=== PATIENT | female | born 1935 | race Caucasian/White ===

== ENCOUNTER 2017-08-01 17:04 | Emergency (ER) | payer MEDICARE, MEDICAID ==
[~2017-08-01] VITALS: Ht 157.5 cm; Wt 63.5 kg
[2017-08-01 17:04] VITALS: BP 126/71
== END 2017-08-01 18:19 | disposition home or self-care (01) ==
LOC: ER 17:09
DX: H10.029 Other mucopurulent conjunctivitis, unspecified eye (principal); I11.0 Hypertensive heart disease with heart failure; I50.9 Heart failure, unspecified; Z88.0 Allergy status to penicillin
CPT/HCPCS: 99281; A4606; Z7502; Z7610

== ENCOUNTER 2019-08-29 18:08 | Inpatient (IN) | payer MEDICARE, MEDICAID ==
[~2019-08-29] VITALS: Ht 157.5 cm; Wt 65.3 kg
--- NOTE | 2019-08-29 18:34 | NUR ---
Sent by PCP, for admission; CHF exacerbation; requiring intravenous. Per primary care physician-patient complained of SOB x 7 days. DENIES PAIN, NO ACUTE DISTRESS NOTED. AMBULATORY, VSS. LIMITED HISTORY, PT SPEAKS FARSI. ON MONITOR AND READY FOR EVAL.
--- NOTE | 2019-08-29 19:00 | NUR ---
IV ACCESS OBTAINED. PT DARRICK WELL.
[2019-08-29 19:09] LABS: BASOPHILS # (AUTO) 0.1 /CMM (0.0-0.2); BASOPHILS % (AUTO) 1.3 % (0.0-2.0); EOSINOPHILS % (AUTO) 3.1 % (0.0-6.0); HEMATOCRIT 40 % (33-45); HEMOGLOBIN 12.8 g/dL (11.5-14.8); LYMPHOCYTES # (AUTO) 1.4 /CMM (0.8-4.8); LYMPHOCYTES % (AUTO) 25.4 % (20.0-44.0); MEAN CORPUSCULAR HGB CONC 32 g/dl (31.0-36.0); MEAN CORPUSCULAR VOLUME 88 fL (82-100); MONOCYTES # (AUTO) 0.7 /CMM (0.1-1.30); MONOCYTES % (AUTO) 13.1 % (2.0-12.0); NEUTROPHILS # (AUTO) 3.1 /CMM (1.8-8.9); NEUTROPHILS % (AUTO) 57.1 % (43.0-81.0); PLATELET COUNT (AUTO) 223 /CMM (150-450); RED BLOOD CELL COUNT(AUTO) 4.55 MIL/uL (4.0-5.2); WHITE BLOOD COUNT (AUTO) 5.4 K/uL (4.3-11.0)
[2019-08-29 19:24] LABS: CALCIUM, SERUM 9.7 mg/dL (8.5-10.1); CARBON DIOXIDE 29 mmol/L (21-32); CHLORIDE 106 mmol/L (98-107); CREATININE 1.1 mg/dL (0.6-1.3); GLUCOSE 100 mg/dL (74-106); POTASSIUM 3.9 mmol/L (3.5-5.1); SODIUM SERUM 144 mmol/L (136-145); UREA NITROGEN, BLOOD 25 mg/dL (7-18)
[2019-08-29 19:37] LABS: ALANINE AMINOTRANSFERASE 15 U/L (12-78); ALBUMIN 3.4 g/dL (3.4-5.0); ALKALINE PHOSPHATASE 105 U/L (46-116); ASPARTATE AMINOTRANSFERASE 16 U/L (15-37); B-TYPE NATRIURETIC PEPTIDE 678 PG/ML (0-125); BILIRUBIN,DIRECT 0.1 mg/dL (0.0-0.2); BILIRUBIN,TOTAL 0.4 mg/dL (0.2-1.0); TOTAL PROTEIN, SERUM 7.1 g/dL (6.4-8.2)
--- NOTE | 2019-08-29 19:55 | NUR ---
CALLED SUP FOR TELE BED
--- NOTE | 2019-08-29 20:16 | NUR ---
PT RESTING COMFORTABLY IN BED. VSS. WILL CONT TO MONITOR.
--- NOTE | 2019-08-29 20:24 | NUR ---
ER DOC ON PHONE WITH HOSPITALIST
[2019-08-29] MEDS ORDERED: Z GUARD REMEDY 2 OZ OINT TP PRN (21:00)
[2019-08-29] MEDS ORDERED: ACETAMINOPHEN 325 MG TABLET PO PRN (21:00)
[2019-08-29] MEDS ORDERED: HYDROCODONE/APAP 5/325MG 1 EACH TABLET PO PRN (21:00)
[2019-08-29] MEDS ORDERED: MAG HYDROX/AL HYDROX/SIMETH 30 ML UDC PO PRN (21:00)
[2019-08-29] MEDS ORDERED: ZOLPIDEM TARTRATE 5 MG TABLET PO PRN (21:00)
[2019-08-29] MEDS ORDERED: MAGNESIUM HYDROXIDE 30 ML UDC PO PRN (21:00)
[2019-08-29] MEDS ORDERED: ONDANSETRON HCL/PF 4 MG/2 ML VIAL IVP PRN (21:00)
--- NOTE | 2019-08-29 21:47 | NUR ---
REPORT GIVEN TO JOHNATHAN BURKS FOR [id number]. [facility]ON[facility] ACCEPTING
[2019-08-29 22:40] VITALS: BP 123/60
--- NOTE | 2019-08-29 22:40 | NUR ---
[facility]
--- NOTE | 2019-08-29 22:53 | NUR ---
dr. shine at the bedside to see the patient. Addendum: 08/29/19 at 2257 by VITALIY STEWART RN orders clarified. patient to be med surge. informed no medications were given in er. new orders recieved.
[2019-08-29] MEDS ORDERED: FUROSEMIDE 40 MG/4 ML VIAL IV ONE (23:18)
[2019-08-29] MEDS ORDERED: FURO40TA5 PO (23:28)
[2019-08-29] MEDS ORDERED: AMLO5TAB9 PO (23:28)
[2019-08-29] MEDS ORDERED: ATOR10TA PO (23:28)
[2019-08-29] MEDS ORDERED: POTA10CA43 PO (23:28)
[2019-08-29] MEDS ORDERED: RIVA10TA PO (23:28)
--- NOTE | 2019-08-29 23:49 | NUR ---
jyothi hernandez called and he helped complete admission assessment.
--- NOTE | 2019-08-29 23:50 | NUR ---
patient admitted from er under dr. shine for chf exacerbation patidavid andress been having increasing sob for last 7 daysys . pt is amublatory speaks frasi is alert and oriented x3. as med surge patient. patient in no apparent distress. new orders recieved from dr. shine. medication from purse confiscated placed with chart family informed to be collected tomorrow when david visits her son.
--- NOTE | 2019-08-30 06:44 | NUR ---
MED SURGE CLOSING NOTE. PATIENT RESTING IN BED WITH EYES CLOSED IN NO APPARENT DISTRESS. ON 2LNC BREATHING IS EVEN AND UNLABORED. BED DOWN LOCKED SRX2. CALL LIGHT WITHIN REACH.
--- NOTE | 2019-08-30 07:17 | NUR ---
MS RN OPENING NOTES RECEIVED PATIENT AWAKE IN BED IN NO ACUTE SIGNS OF DISTRESS. A/O X4. FARSI SPEAKING, DENIES PAIN OR ANY DISCOMFORTS AT THIS TIME. ON SUPPLEMENTAL 02 VIA N/C @ 2LPM, TOLERATING WELL, BREATHING EVEN AND UNLABORED. IV SL ON LEFT WRIST G#20 INTACT, PATENT AND FLUSHES WELL. BED IN LOW LOCKED POSITION WITH SR UP X2. CALL LIGHT WITHIN REACH. WILL CONTINUE TO MONITOR.
[2019-08-30 07:19] LABS: BASOPHILS # (AUTO) 0.1 /CMM (0.0-0.2); EOSINOPHILS % (AUTO) 3.7 % (0.0-6.0); HEMATOCRIT 40 % (33-45); HEMOGLOBIN 12.5 g/dL (11.5-14.8); LYMPHOCYTES # (AUTO) 1.6 /CMM (0.8-4.8); LYMPHOCYTES % (AUTO) 27.8 % (20.0-44.0); MEAN CORPUSCULAR HGB CONC 32 g/dl (31.0-36.0); MEAN CORPUSCULAR VOLUME 87 fL (82-100); MONOCYTES # (AUTO) 0.7 /CMM (0.1-1.30); MONOCYTES % (AUTO) 11.4 % (2.0-12.0); NEUTROPHILS # (AUTO) 3.2 /CMM (1.8-8.9); NEUTROPHILS % (AUTO) 56.1 % (43.0-81.0); PLATELET COUNT (AUTO) 222 /CMM (150-450); RED BLOOD CELL COUNT(AUTO) 4.52 MIL/uL (4.0-5.2); WHITE BLOOD COUNT (AUTO) 5.7 K/uL (4.3-11.0)
[2019-08-30 07:32] LABS: CALCIUM, SERUM 9.6 mg/dL (8.5-10.1); CREATININE 0.9 mg/dL (0.6-1.3); MAGNESIUM 2.2 mg/dL (1.8-2.4); PHOSPHORUS 3.7 mg/dL (2.5-4.9); POTASSIUM 3.3 mmol/L (3.5-5.1)
[2019-08-30 08:00] VITALS: BP 118/57
[2019-08-30] MEDS ORDERED: FUROSEMIDE 40 MG/4 ML VIAL IV SCH (09:00)
--- NOTE | 2019-08-30 09:10 | NUR ---
med [facility] nurse: [facility], spoke to shelton (pharmacist) and verified pt's home medications. i added losartan 100mg po daily and omeprazole 20mg po daily. per shelton (pharmacist), pt used to be on xarelto 20mg po daily, but she doesn't get her refill here. place a call to david (son) and verified that she is still taking xarelto. baron (primary nurse) notified and informed him that i updated her medications.
[2019-08-30] MEDS ORDERED: OMEP20TA5 PO (09:11)
[2019-08-30] MEDS ORDERED: LOSA100T31 PO (09:11)
--- NOTE | 2019-08-30 10:53 | NUR ---
RN NOTES PT NOTED WITH LOW LEVEL POTASSIUM 3.3 TODAY, ADMINISTERED KDUR 20 MEQ PO ORDERED. WILL CONTINUE TO MONITOR.
[2019-08-30] MEDS ORDERED: POTASSIUM CHLORIDE 20 MEQ TAB.PRT.SR PO SCH (11:00)
[2019-08-30] MEDS ORDERED: RIVAROXABAN 10 MG TABLET PO SCH ×2 (11:00→17:00)
[2019-08-30] MEDS ORDERED: RIVAROXABAN 15 MG TABLET PO SCH (11:16)
[2019-08-30 11:37] LABS: THYROID STIMULATING HORMONE 4.376 uIU/mL (0.358-3.74)
[2019-08-30] MEDS: POTASSIUM CHLORIDE 20 MEQ TAB.PRT.SR PO SCH ×3 (11:56→14:19)
[2019-08-30] MEDS: FUROSEMIDE 40 MG/4 ML VIAL IV SCH ×3 (11:56→19:12)
[2019-08-30] MEDS: PANTOPRAZOLE 40 MG TABLET.DR PO SCH (11:57)
[2019-08-30] MEDS: LOSARTAN POTASSIUM 50 MG TABLET PO SCH (11:57)
[2019-08-30] MEDS: AMLODIPINE BESYLATE 5 MG TABLET PO SCH (11:57)
[2019-08-30 16:00] VITALS: BP 106/51
--- NOTE | 2019-08-30 18:35 | NUR ---
MS RN CLOSING NOTES PATIENT ASLEEP IN BED AT THIS TIME, EASILY AROUSABLE. PT IS A/O X3-4. FARSI SPEAKING. ON SUPPLEMENTAL 02 VIA N/C @ 2LPM, TOLERATING WELL WITH NO ACUTE RESPIRATORY DISTRESS NOTED DURING SHIFT. IV SL ON LEFT WRIST G#20 INTACT, PATENT AND FLUSHES WELL. BED IN LOW LOCKED POSITION WITH SR UP X2. CALL LIGHT WITHIN REACH. ALL NEEDS AND CARE ATTENDED WELL. WILL ENDORSE TO SHANK TURNER NURSE FOR MARGARET.
--- NOTE | 2019-08-30 19:15 | NUR ---
MS RN PM OPENING NOTES BEDSIDE REPORT RECIEVED FROM MARC AND DEBORAH RN. PATIENT IN BED AT THIS TIME, EASILY AROUSABLE TO VOICE. PT IS A/O X3-4. FARSI SPEAKING ONLY WITH LIMITED BERMUDIAN ABILITY. PATIENT WEARING 02 VIA N/C @ 2LPM, BREATHING EVEN AND UNLABORED WITH NO APPARENT DISTRESS. IV SL ON LEFT WRIST G#20 INTACT, PATENT FLUSHED WITH NS. BED IN LOW LOCKED POSITION WITH SR UP X2. CALL LIGHT WITHIN REACH. PT VERBALIZEDUNDERSTANDING TO CALL FOR ASSISTANCE NEEDED. WILL CONT TO MONITOR.
[2019-08-30 19:56] VITALS: BP 112/72
[2019-08-30] MEDS ORDERED: ATORVASTATIN 10 MG TABLET PO SCH (22:00)
--- NOTE | 2019-08-31 05:09 | NUR ---
PATIENT REFUSED EKG learning disabilities teacher came to do ekg. patient refusing test at this time. speaking with patient she states its too early. wants cad technician to come back. learning disabilities teacher misael will endorse a repeat attempt of ekg to day shift learning disabilities teacher.
[2019-08-31 06:56] LABS: BASOPHILS # (AUTO) 0.1 /CMM (0.0-0.2); BASOPHILS % (AUTO) 1.2 % (0.0-2.0); HEMATOCRIT 42 % (33-45); HEMOGLOBIN 13.2 g/dL (11.5-14.8); LYMPHOCYTES # (AUTO) 1.5 /CMM (0.8-4.8); LYMPHOCYTES % (AUTO) 25.2 % (20.0-44.0); MEAN CORPUSCULAR HGB CONC 32 g/dl (31.0-36.0); MEAN CORPUSCULAR VOLUME 87 fL (82-100); MONOCYTES # (AUTO) 0.7 /CMM (0.1-1.30); MONOCYTES % (AUTO) 12.1 % (2.0-12.0); NEUTROPHILS # (AUTO) 3.4 /CMM (1.8-8.9); NEUTROPHILS % (AUTO) 57.5 % (43.0-81.0); PLATELET COUNT (AUTO) 220 /CMM (150-450); RED BLOOD CELL COUNT(AUTO) 4.76 MIL/uL (4.0-5.2); WHITE BLOOD COUNT (AUTO) 5.9 K/uL (4.3-11.0)
[2019-08-31 07:10] LABS: ALANINE AMINOTRANSFERASE 10 U/L (12-78); ALBUMIN 3.1 g/dL (3.4-5.0); ALKALINE PHOSPHATASE 101 U/L (46-116); ASPARTATE AMINOTRANSFERASE 13 U/L (15-37); BILIRUBIN,TOTAL 0.5 mg/dL (0.2-1.0); CALCIUM, SERUM 9.7 mg/dL (8.5-10.1); CARBON DIOXIDE 31 mmol/L (21-32); CHLORIDE 105 mmol/L (98-107); GLUCOSE 93 mg/dL (74-106); MAGNESIUM 2.2 mg/dL (1.8-2.4); PHOSPHORUS 4.3 mg/dL (2.5-4.9); POTASSIUM 3.7 mmol/L (3.5-5.1); SODIUM SERUM 143 mmol/L (136-145); TOTAL PROTEIN, SERUM 6.8 g/dL (6.4-8.2); UREA NITROGEN, BLOOD 23 mg/dL (7-18)
--- NOTE | 2019-08-31 07:28 | NUR ---
MS RN NOTES RECEIVED PATIENT SITTING ON THE CHAIR, A/O X3. NO SIGNS OF DISTRESS NOTED AT THIS TIME, FARSI SPEAKING ONLY WITH LIMITED SERBIAN. ON RA, TOLERATING WELL. IV ACCESS ON LEFT WRIST G#20, SL. INTACT AND PATENT. SAFETY MEASURES IN PLACE, BED IN LOW LOCKED POSITION WITH SR UP X2. CALL LIGHT WITHIN REACH. WILL CONT TO MONITOR.
[2019-08-31 08:00] VITALS: BP 112/58
[2019-08-31] MEDS: PANTOPRAZOLE 40 MG TABLET.DR PO SCH (08:53)
[2019-08-31 08:54] VITALS: BP 112/58
[2019-08-31] MEDS: AMLODIPINE BESYLATE 5 MG TABLET PO SCH (08:54)
[2019-08-31] MEDS: LOSARTAN POTASSIUM 50 MG TABLET PO SCH (08:54)
[2019-08-31] MEDS ORDERED: FUROSEMIDE 40 MG TABLET PO SCH (09:00)
[2019-08-31] MEDS ORDERED: POTASSIUM CHLORIDE 20 MEQ TAB.PRT.SR PO SCH (09:00)
--- NOTE | 2019-08-31 13:30 | NUR ---
WASHER CUTTER NOTES PATIENT DISCHARGE IN STABLE CONDITION, ABLE TO MAKE NEEDS KNOWN. A/OX 3. V/S TAKEN, STABLE AND RECORDED. PATIENT'S IV ACCESS REMOVED AND APPLIED PRESSURE DRESSING. SKIN IS INTACT. NAME ARM BAND REMOVED. ALL BELONGINGS CHECKED AND SIGNED. HEALTH TEACHINGS/DISCHARGE INSTRUCTIONS GIVEN TO PATIENT AND VERBALIZED UNDERSTANDING. PICKED UP BY SON, LEFT UNIT VIA WHEELCHAIR ACCOMPANIED BY HOSPITAL STAFF. NO SIGNS OF DISTRESS NOTED. CHARGE NURSE AWARE OF DISCHARGED.
== END 2019-08-31 13:25 | disposition home or self-care (01) | DRG 291 ==
LOC: ER 18:17 → MED 20:44 → TELE 21:44 → MED 22:56
PROVIDERS: ADMIT Family Medicine; ATTEND Student in an Organized Health Care Education/Training Program
DX: I11.0 Hypertensive heart disease with heart failure (principal); N17.0 Acute kidney failure with tubular necrosis; I50.33 Acute on chronic diastolic (congestive) heart failure; I25.10 Atherosclerotic heart disease of native coronary artery without angina pectoris; I48.91 Unspecified atrial fibrillation; E78.5 Hyperlipidemia, unspecified; G89.29 Other chronic pain; Z95.2 Presence of prosthetic heart valve; I27.20 Pulmonary hypertension, unspecified; Z95.0 Presence of cardiac pacemaker; Z99.81 Dependence on supplemental oxygen
CPT/HCPCS: 36415; 71045-TC; 80048-TC; 80053-TC; 80061-TC; 80076-TC; 83735-TC; 83880; 84100-TC; 84439-TC; 84443-TC; 84484-TC; 85025-TC; 85730-TC; 87081-TC; 93307-TC; 97116-TC; 97530-TC; 97535-TC; G0378; J1940

== ENCOUNTER 2019-12-11 19:46 | Inpatient (IN) | payer MEDICARE, OTHER ==
[~2019-12-11] VITALS: Ht 154.9 cm; Wt 64.0 kg
[~2019-12-11 19:46] MED LIST: AMLO5TAB9 PO; ATOR10TA PO; FURO40TA5 PO; LOSA100T31 PO; OMEP20TA5 PO; POTA10CA43 PO; RIVA10TA PO
[2019-12-11 20:24] LABS: BASOPHILS # (AUTO) 0.1 /CMM (0.0-0.2); BASOPHILS % (AUTO) 1.4 % (0.0-2.0); EOSINOPHILS % (AUTO) 3.6 % (0.0-6.0); HEMATOCRIT 39 % (33-45); HEMOGLOBIN 12.6 g/dL (11.5-14.8); LYMPHOCYTES # (AUTO) 1.4 /CMM (0.8-4.8); LYMPHOCYTES % (AUTO) 18.8 % (20.0-44.0); MEAN CORPUSCULAR HGB CONC 32 g/dl (31.0-36.0); MEAN CORPUSCULAR VOLUME 85 fL (82-100); MONOCYTES # (AUTO) 0.8 /CMM (0.1-1.30); MONOCYTES % (AUTO) 10.5 % (2.0-12.0); NEUTROPHILS # (AUTO) 4.7 /CMM (1.8-8.9); NEUTROPHILS % (AUTO) 65.7 % (43.0-81.0); PLATELET COUNT (AUTO) 348 /CMM (150-450); RED BLOOD CELL COUNT(AUTO) 4.61 MIL/uL (4.0-5.2); WHITE BLOOD COUNT (AUTO) 7.2 K/uL (4.3-11.0)
--- NOTE | 2019-12-11 20:25 | NUR ---
THADDEUS FROM HOME TO ER BED 6. AAOX4. NOT IN RESP DISTRESS, BREATHING EVEN AND UNLABORED. AMBULATORY. CAME IN FOR SOB X 3 DAYS. PER SON SHE HAD FEVER BUT AFEBRILE UPON ASSESSMENT. PT NOTED 91-93% ON RA. PLACED ON 02 VIA NC AT 2LPM. MD WAS AT BEDSIDE FOR EVAL. ORDERS RECEIVED NOTED AND CARRIED OUT. IV LINE OBTAINED ON L HAND 20G., BLOOD DRAWNA ND GIVEN TO STROBOROMA OPERATOR.
[2019-12-11 20:40] LABS: CARBON DIOXIDE 31 mmol/L (21-32); CHLORIDE 103 mmol/L (98-107); CREATININE 1.1 mg/dL (0.6-1.3); GLUCOSE 103 mg/dL (74-106); POTASSIUM 3.4 mmol/L (3.5-5.1); SODIUM SERUM 140 mmol/L (136-145); UREA NITROGEN, BLOOD 17 mg/dL (7-18)
[2019-12-11 20:52] LABS: ALANINE AMINOTRANSFERASE 14 U/L (12-78); ALBUMIN 3.3 g/dL (3.4-5.0); ALKALINE PHOSPHATASE 95 U/L (46-116); ASPARTATE AMINOTRANSFERASE 18 U/L (15-37); B-TYPE NATRIURETIC PEPTIDE 863 PG/ML (0-125); BILIRUBIN,DIRECT 0.1 mg/dL (0.0-0.2); BILIRUBIN,TOTAL 0.4 mg/dL (0.2-1.0); CALCIUM, SERUM 9.8 mg/dL (8.5-10.1); TOTAL PROTEIN, SERUM 7.6 g/dL (6.4-8.2)
--- NOTE | 2019-12-11 21:12 | NUR ---
CALLED FOR TELE BED
--- NOTE | 2019-12-11 21:14 | NUR ---
ROOM ASSISNMENT: [id number] TELE
[2019-12-11] MEDS ORDERED: FUROSEMIDE 40 MG/4 ML VIAL ONE (21:27)
[2019-12-11] MEDS ORDERED: FUROSEMIDE 40 MG/4 ML VIAL IV ONE (21:30)
--- NOTE | 2019-12-11 21:38 | NUR ---
REPORT GIVEN TO JOHNATHAN IRWIN FOR MARGARET. PT TO 306-2
--- NOTE | 2019-12-11 21:45 | NUR ---
manager telemetryburnisher and bumper note received patient via jordanrchelsie. patient ambulated to bed with stand by assist. per er nurse patient is a/ox4. polish speaking. on oxygen 2l/min via nasal cannula. respirations are even and unlabored. no c/o pain at this time. external tele monitor reads controlled afib hr 67. in no apparent distress. iv access in left hand #20 patent and saline locked. power plant assistant obtained belongings list and vital signs. bed is low and locked hob elevated in high fowlers, side rails up x2, call light within reach. will continue to monitor.
--- NOTE | 2019-12-11 21:49 | NUR ---
PT TRANSPORTED TO UNIT ON [facility] WITH EMT AND RN AT BEDSIDE W/ ACLS PROTOCOL. NAD NOTED DURING TRANSPORT. PTY AMBULATED FROM GURNEY TO BED.
[2019-12-11 22:00] VITALS: BP 141/68
--- NOTE | 2019-12-11 22:30 | NUR ---
telemarketing fundraiser note received order that patient is a r/o covid patient. nursing supp called and informed. transfer is place to [facility], covid unit, room 108.
--- NOTE | 2019-12-11 22:40 | NUR ---
television technician note gave report to douglas MANN.
[2019-12-11] MEDS: ATORVASTATIN 10 MG TABLET PO SCH (22:54)
[2019-12-11] MEDS ORDERED: ONDANSETRON HCL/PF 4 MG/2 ML VIAL IVP PRN (23:00)
[2019-12-11] MEDS ORDERED: MAGNESIUM HYDROXIDE 30 ML UDC PO PRN (23:00)
[2019-12-11] MEDS ORDERED: Z GUARD REMEDY 2 OZ OINT TP PRN (23:00)
[2019-12-11] MEDS ORDERED: ACETAMINOPHEN 325 MG TABLET PO PRN (23:00)
[2019-12-11] MEDS ORDERED: MAG HYDROX/AL HYDROX/SIMETH 30 ML UDC PO PRN (23:00)
--- NOTE | 2019-12-11 23:00 | NUR ---
telephone worker note patient transferred to [facility] bed 108 by charge nurse and clock and watch hands mounter.
--- NOTE | 2019-12-11 23:05 | NUR ---
2305 ADMITTED FROM 3W 84 YEAR OLD LATVIAN SPEAKING FEMALE VIA BED WITH DX CHF AND R/O COVID19. AAOX4. FACE MASK ON. DENIES ANY PAIN OR DISCOMFORT WHEN ASKED. CONNECTED TO ROLLER MAKER. CONTROLLED A-FIB IN THE 50S-60S. ADMISSION CARE AND ASSESSMENT DONE. NO SKIN BREAKDOWN NOTED. VITAL SIGNS TAKEN AND RECORDED. PATIENT ABLE TO AMBULATE TO BATHROOM WITH ASSISTANCE. NOTED WITH MILD SOB ON EXERTION. PLACED ON O2 AT 2L PER NC. VERBALIZED IMPROVEMENT IN RESPIRATION AFTER O2 PLACED. ORAL SWAB FOR COVID DONE ORDERED. PLACED PATIENT ON DROPLET ISOLATION WITH ALL NECESSARY PRECAUTIONS STRICTLY OBSERVED. CALL LIGHT PLACED WITHIN REACH AND INSTRUCTED TO CALL FOR ASSIST. WILL CONTINUE TO MONITOR CLOSELY.
[2019-12-12] VITALS: BP 132/79
[2019-12-12 04:00] VITALS: BP 106/63
[2019-12-12 06:22] LABS: BASOPHILS % (AUTO) 0.8 % (0.0-2.0); EOSINOPHILS % (AUTO) 4.4 % (0.0-6.0); HEMATOCRIT 36 % (33-45); LYMPHOCYTES # (AUTO) 1.1 /CMM (0.8-4.8); LYMPHOCYTES % (AUTO) 19.1 % (20.0-44.0); MEAN CORPUSCULAR HGB CONC 33 g/dl (31.0-36.0); MEAN CORPUSCULAR VOLUME 84 fL (82-100); MONOCYTES # (AUTO) 0.9 /CMM (0.1-1.30); MONOCYTES % (AUTO) 14.9 % (2.0-12.0); NEUTROPHILS # (AUTO) 3.6 /CMM (1.8-8.9); NEUTROPHILS % (AUTO) 60.8 % (43.0-81.0); PLATELET COUNT (AUTO) 325 /CMM (150-450); RED BLOOD CELL COUNT(AUTO) 4.35 MIL/uL (4.0-5.2)
[2019-12-12 06:30] LABS: CALCIUM, SERUM 9.6 mg/dL (8.5-10.1); CREATININE 0.9 mg/dL (0.6-1.3); MAGNESIUM 2.2 mg/dL (1.8-2.4); PHOSPHORUS 3.7 mg/dL (2.5-4.9); POTASSIUM 3.1 mmol/L (3.5-5.1)
--- NOTE | 2019-12-12 06:30 | NUR ---
RN CLOSING NOTE PT IS SLEEPING IN THE BED. NO ACUTE CHANGES DURING MY SHIFT. VSS. SAFETY MEASURES IN PLACE BED AT LOWEST POSITION, AND LOCKED ,CALL LIGHT WITHIN REACH, SIDE RAILS UPX2, WILL ENDORSE TO INCOMING NURSE FOR CONTINUITY OF CARE.
[2019-12-12] MEDS: PANTOPRAZOLE 40 MG TABLET.DR PO SCH (07:57)
[2019-12-12 08:00] VITALS: BP 113/54
--- NOTE | 2019-12-12 08:00 | NUR ---
[facility] RN OPENING NOTES RECEIVED PT IN BED. PT IS SLEEPING IN THE BED. A FIB /PACEMAKER HR 56. PT IS ON N/C IS 2 L. SAFETY MEASURES IN PLACE BED AT LOWEST POSITION, AND LOCKED ,CALL LIGHT WITHIN REACH, SIDE RAILS UPX2, WILL CONTINUE TO MONITOR.
[2019-12-12] MEDS: FUROSEMIDE 40 MG/4 ML VIAL IV SCH ×2 (08:30→16:13)
[2019-12-12] MEDS: POTASSIUM CHLORIDE 20 MEQ TAB.PRT.SR PO SCH (08:31)
[2019-12-12] MEDS: AMLODIPINE BESYLATE 5 MG TABLET PO SCH (08:31)
[2019-12-12] MEDS: LOSARTAN POTASSIUM 50 MG TABLET PO SCH (08:32)
[2019-12-12] MEDS ORDERED: OMEPRAZOLE 20 MG CAPSULE.DR PO SCH (09:00)
[2019-12-12] MEDS ORDERED: POTASSIUM CHLORIDE 20 MEQ TAB.PRT.SR PO SCH (09:00)
[2019-12-12] MEDS ORDERED: FUROSEMIDE 40 MG/4 ML VIAL IV SCH (09:00)
[2019-12-12 12:00] VITALS: BP_SYST 118; BP_DIAS 50; BP_DIAS 56
[2019-12-12 16:00] VITALS: BP 112/54
[2019-12-12] MEDS: RIVAROXABAN 10 MG TABLET PO SCH (16:15)
[2019-12-12] MEDS ORDERED: RIVAROXABAN 10 MG TABLET PO SCH (17:00)
--- NOTE | 2019-12-12 18:25 | NUR ---
RN CLOSING NOTE PT IS RESTING. PY IS ON NASAL CANNULA ON 2L. NORMAL VS. PATIENT AVOIDED 4 TIMES AND 2 BOWEL MOVEMENT.SAFETY MEASURES IN PLACE BED AT LOWEST POSITION, AND LOCKED ,CALL LIGHT WITHIN REACH, SIDE RAILS UPX2, WILL ENDORSE TO NIGHTSHIFT NURSE FOR CONTINUITY OF CARE.
--- NOTE | 2019-12-12 19:55 | NUR ---
RN OPENING NOTE RECEIVED PT IN BED, RESTING COMFORTABLY. AO X4. PATIENT IN NO S/SX OF ACUTE DISTRESS AT THIS TIME. NO SOB NOTED. PATIENT'S BREATHING IS EVEN AND UNLABORED. PATIENT IS ON 2 L OF OXYGEN VIA NC; TOLERATING WELL. PATIENT ON TELE MONITORING READING AFIB AT 60'S . NOTED IV SITE ON LEFT HAND #20; PATENT AND FLUSHING WELL,NO S/S OF INFECTION OR INFILTRATION. PATIENT IS AMBULATORY, NEEDS MINIMAL ASSISTANCE WITH TOILETING. SAFETY MEASURES HAVE BEEN PROVIDED AND IMPLEMENTED. PATIENT BED ALARM IS ON. HEAD OF BED ELEVATED. BED IS LOCKED, IN LOWEST POSITION AND SIDE RAILS UP. CALL LIGHT WITHIN REACH OF THE PATIENT. WILL CONTINUE TO MONITOR AND REASSESS FOR ANY CHANGES IN CONDITION.
[2019-12-12 20:00] VITALS: BP_SYST 111; BP_SYST 112; BP_DIAS 54; BP_DIAS 59
[2019-12-12] MEDS: ATORVASTATIN 10 MG TABLET PO SCH (21:52)
[2019-12-13] VITALS: BP 121/65
--- NOTE | 2019-12-13 00:08 | NUR ---
RN NOTE TELEPHONE CALL FROM LAB, SPOKE WITH CECILLE, STATED PATIENT IS COVID NEGATIVE. FOOD ASSEMBLER KITCHEN WAS ADVISED
[2019-12-13 04:00] VITALS: BP 123/68
[2019-12-13 06:28] LABS: BASOPHILS # (AUTO) 0.1 /CMM (0.0-0.2); BASOPHILS % (AUTO) 0.8 % (0.0-2.0); EOSINOPHILS % (AUTO) 4.4 % (0.0-6.0); HEMATOCRIT 37 % (33-45); LYMPHOCYTES # (AUTO) 1.2 /CMM (0.8-4.8); LYMPHOCYTES % (AUTO) 19.8 % (20.0-44.0); MEAN CORPUSCULAR HGB CONC 33 g/dl (31.0-36.0); MEAN CORPUSCULAR VOLUME 84 fL (82-100); MONOCYTES # (AUTO) 0.9 /CMM (0.1-1.30); MONOCYTES % (AUTO) 14.4 % (2.0-12.0); NEUTROPHILS # (AUTO) 3.7 /CMM (1.8-8.9); NEUTROPHILS % (AUTO) 60.6 % (43.0-81.0); PLATELET COUNT (AUTO) 345 /CMM (150-450); RED BLOOD CELL COUNT(AUTO) 4.38 MIL/uL (4.0-5.2)
[2019-12-13 06:50] LABS: ALANINE AMINOTRANSFERASE 16 U/L (12-78); ALBUMIN 2.9 g/dL (3.4-5.0); ALKALINE PHOSPHATASE 87 U/L (46-116); ASPARTATE AMINOTRANSFERASE 16 U/L (15-37); BILIRUBIN,TOTAL 0.5 mg/dL (0.2-1.0); CALCIUM, SERUM 10.2 mg/dL (8.5-10.1); CARBON DIOXIDE 33 mmol/L (21-32); CHLORIDE 102 mmol/L (98-107); CREATININE 0.9 mg/dL (0.6-1.3); GLUCOSE 95 mg/dL (74-106); MAGNESIUM 2.4 mg/dL (1.8-2.4); PHOSPHORUS 3.7 mg/dL (2.5-4.9); POTASSIUM 3.4 mmol/L (3.5-5.1); SODIUM SERUM 140 mmol/L (136-145); TOTAL PROTEIN, SERUM 7.3 g/dL (6.4-8.2); UREA NITROGEN, BLOOD 16 mg/dL (7-18)
--- NOTE | 2019-12-13 07:14 | NUR ---
RN CLOSING NOTE PATIENT REMAINS IN ROOM RESTING COMFORTABLY.NO SIGNS OF RESPIRATORY, ON RA;TOLERATTING WELL SATURATING @ 92% AT 2 LPM VIA NC.PATIENT IS CLEAN , DRY AND COMFORTABLE THROUGHOUT THE SHIFT. ALL DUE MEDS GIVEN ORDERED ; PATIENT TOLERATED WELL. SAFETY MEASURES IMPLEMENTED, BED IN LOWEST POSITION, LOCKED, SIDE RAILS UP, CALL LIGHT WITHIN REACH. ENDORSED TO ONCOMING SHIFT RN FOR CONTINUITY OF CARE.
[2019-12-13 08:00] VITALS: BP 106/58
--- NOTE | 2019-12-13 08:04 | NUR ---
RN TELE1 - OPENING PATIENT ASLEEP BUT EASILY WOKEN WITH NAME AND TOUCH, PATIENT AOX4 COOPERATIVE WITH CARE, ON EXTERNAL MONITOR PATIENT AFIB @ 70'S PATIENT HAS A LEFT PACEMAKER. PATIENT IS AMBULATORY, BUT INFORMED PATIENT TO CALL NURSE IF SHE NEEDS ASSISTANCE. PATIENT HAS LEFT HAND 20. CLEAN DRY NO SIGNS OF INFILTRATION OR INFECTION BED LOCKED LOWEST POSITIION CALL LIGHT WITH IN REACH ALL SAFETY MEASURE IMPLEMENTED PER HOSPITAL POLICY.
[2019-12-13] MEDS: PANTOPRAZOLE 40 MG TABLET.DR PO SCH (10:08)
[2019-12-13] MEDS: FUROSEMIDE 40 MG/4 ML VIAL IV SCH ×2 (10:08→17:27)
[2019-12-13] MEDS: POTASSIUM CHLORIDE 20 MEQ TAB.PRT.SR PO SCH (10:09)
[2019-12-13] MEDS: LOSARTAN POTASSIUM 50 MG TABLET PO SCH (10:15)
[2019-12-13] MEDS: AMLODIPINE BESYLATE 5 MG TABLET PO SCH (10:16)
[2019-12-13] MEDS ORDERED: POTASSIUM CHLORIDE 20 MEQ TAB.PRT.SR PO SCH (11:00)
[2019-12-13 12:00] VITALS: BP 106/58
[2019-12-13 16:00] VITALS: BP 108/59
[2019-12-13] MEDS: HYDROCODONE/APAP 5/325MG 1 EACH TABLET PO PRN ×2 (16:27→16:29)
--- NOTE | 2019-12-13 16:29 | NUR ---
SENIOR OFFICE ASSISTANT - MEDICATION MISSED MEDICATION ON SCAN, GAVE MEDICATION TO PATIENT AT 1030 DUE TO PATIENT COMPLAINING OF PAIN. ADMINISTERED MEDICATION TO PATIENT
[2019-12-13] MEDS: RIVAROXABAN 10 MG TABLET PO SCH (17:27)
--- NOTE | 2019-12-13 18:18 | NUR ---
RN TELE1 ENDORSED TO [facility] NURSE [id number]
--- NOTE | 2019-12-13 19:15 | NUR ---
PARTICLE BOARD SUPERVISOR OPENING NOTES: RECEIVED PT ON 2LPM VIA NC AND IS TOLERATING WELL. PT IS A/OX4. PT IS FARSI SPEAKING AND UNDERSTANDING ONLY BUT CAN UNDERSTAND MINIMAL GEORGIAN. PT HAS IV ON L HAND #20G AND IS PATENT AND INTACT. CURRENTLY H/L. BED KEPT IN LOW, LOCKED POSITION, AND SIDE RAILS X 2UP. CALL LIGHT WITHIN REACH. NO SOB NOTED. NO S/S OF DISTRESS. PT ON TELE MONITOR AND READING SHOWS AFIB 80S AT THIS TIME. WILL CONTINUE TO MONITOR PT.
--- NOTE | 2019-12-13 19:21 | NUR ---
RN CLOSING NOTE: PATIENT REMAINS IN BED. NO SIGNS OF ACUTE RESPIRATORY DISTRESS NOTED. NO SIGNS OF ACUTE DISTRESS NOTED. SAFETY MEASURES IMPLEMENTED, BED IN LOWEST POSITION, LOCKED, SIDE RAILS UP, CALL LIGHT WITHIN REACH. ENDORSED TO ONCOMING SHIFT RN FOR CONTINUITY OF CARE.
[2019-12-13 20:00] VITALS: BP 121/57
[2019-12-13] MEDS: ATORVASTATIN 10 MG TABLET PO SCH (21:10)
[2019-12-14 04:00] VITALS: BP_SYST 124; BP_DIAS 51; BP_DIAS 57
--- NOTE | 2019-12-14 06:20 | NUR ---
MS RN CLOSING NOTES: ALL NEEDS WERE ATTENDED AND ANTICIPATED FOR. PT KEPT CLEAN, DRY, AND COMFORTABLE. PT REMAINS ON 2LPM VIA NC AND IS TOLERATING WELL. NO SOB NOTED. NO S/S OF DISTRESS. PT RESTING COMFORTABLY AT THIS TIME IN BED. PT'S IV REMAINS ON L HAND #20G AND IS PATENT AND INTACT. CURRENTLY H/L WELL. BED KEPT IN LOW, LOCKED POSITION, AND SIDE RAILS X 2UP. CALL LIGHT WITHIN REACH. WILL ENDORSE TO AM NURSE FOR MARGARET.
--- NOTE | 2019-12-14 06:59 | NUR ---
MS RN NOTES: ENDORSED TO JOHNATHAN MURILLO, FOR MARGARET.
[2019-12-14 07:28] LABS: CREATININE 1.2 mg/dL (0.6-1.3); POTASSIUM 3.7 mmol/L (3.5-5.1)
[2019-12-14 07:32] LABS: BASOPHILS # (AUTO) 0.1 /CMM (0.0-0.2); BASOPHILS % (AUTO) 0.8 % (0.0-2.0); HEMATOCRIT 38 % (33-45); HEMOGLOBIN 12.3 g/dL (11.5-14.8); LYMPHOCYTES # (AUTO) 1.1 /CMM (0.8-4.8); LYMPHOCYTES % (AUTO) 16.7 % (20.0-44.0); MEAN CORPUSCULAR HGB CONC 32 g/dl (31.0-36.0); MEAN CORPUSCULAR VOLUME 85 fL (82-100); MONOCYTES % (AUTO) 14.9 % (2.0-12.0); NEUTROPHILS # (AUTO) 4.3 /CMM (1.8-8.9); NEUTROPHILS % (AUTO) 64.6 % (43.0-81.0); PLATELET COUNT (AUTO) 344 /CMM (150-450); RED BLOOD CELL COUNT(AUTO) 4.52 MIL/uL (4.0-5.2); WHITE BLOOD COUNT (AUTO) 6.7 K/uL (4.3-11.0)
--- NOTE | 2019-12-14 07:40 | NUR ---
RN OPENING NOTE: RECEIVED PATIENT IN BED THIS MORNING. PATIENT IS ALERT AND ORIENTED X4, FARSI SPEAKING. O2 VIA NC @ 2 L/MIN, NO SIGNS OF ACUTE RESPIRATORY DISTRESS NOTED. NO SIGNS OF ACUTE DISTRESS NOTED. AMBULATORY. #20 ON LEFT HAND. SAFETY MEASURES IMPLEMENTED, BED IN LOWEST POSITION, LOCKED, SIDE RAILS UP, CALL LIGHT WITHIN REACH. WILL CONTINUE TO MONITOR PATIENT FOR CHANGES.
[2019-12-14 08:00] VITALS: BP 121/62
[2019-12-14] MEDS: PANTOPRAZOLE 40 MG TABLET.DR PO SCH (08:56)
[2019-12-14] MEDS: HYDROCODONE/APAP 5/325MG 1 EACH TABLET PO PRN (08:58)
[2019-12-14] MEDS: POTASSIUM CHLORIDE 20 MEQ TAB.PRT.SR PO SCH (08:58)
[2019-12-14] MEDS: AMLODIPINE BESYLATE 5 MG TABLET PO SCH (09:00)
[2019-12-14] MEDS: LOSARTAN POTASSIUM 50 MG TABLET PO SCH (09:00)
[2019-12-14] MEDS: FUROSEMIDE 40 MG/4 ML VIAL IV SCH ×2 (09:01→17:00)
[2019-12-14 16:00] VITALS: BP 95/52
[2019-12-14] MEDS: RIVAROXABAN 10 MG TABLET PO SCH (16:49)
--- NOTE | 2019-12-14 19:07 | NUR ---
RN CLOSING NOTE: PATIENT REMAINS IN BED. NO SIGNS OF ACUTE DISTRESS NOTED. SAFETY MEASURES IMPLEMENTED, BED IN LOWEST POSITION, LOCKED, SIDE RAILS UP, CALL LIGHT WITHIN REACH. ENDORSED TO ONCOMING SHIFT RN FOR CONTINUITY OF CARE.
--- NOTE | 2019-12-14 19:30 | NUR ---
MS RN OPENING NOTES: PATIENT IS RESTING IN BED WATCHING TV. VS ( T 97.9, HR 66, O2 99) WNL. BP SEEM SLIGHTLY LOW 104/61, WILL CONTINUE TO MONITOR. THERE ARE NOS/S OF PAIN. The patient is A/O x1. Patient responds to simple commands. The patient is able to ambulate with assistance. The has an IV 22g on LFA, Flushing well. All mechanisms of safety are in place at this time. Bed locked, in the lowest position, and with alarm on. will continue to monitor the the patient.
[2019-12-14 20:00] VITALS: BP_SYST 104; BP_SYST 121; BP_DIAS 61; BP_DIAS 62
[2019-12-14] MEDS: ATORVASTATIN 10 MG TABLET PO SCH (23:13)
[2019-12-15 04:00] VITALS: BP 130/65
[2019-12-15 06:22] LABS: BASOPHILS # (AUTO) 0.1 /CMM (0.0-0.2); BASOPHILS % (AUTO) 0.8 % (0.0-2.0); EOSINOPHILS % (AUTO) 2.9 % (0.0-6.0); HEMATOCRIT 36 % (33-45); HEMOGLOBIN 11.5 g/dL (11.5-14.8); MEAN CORPUSCULAR HGB CONC 32 g/dl (31.0-36.0); MEAN CORPUSCULAR VOLUME 84 fL (82-100); MONOCYTES # (AUTO) 0.9 /CMM (0.1-1.30); NEUTROPHILS # (AUTO) 4.4 /CMM (1.8-8.9); NEUTROPHILS % (AUTO) 67.3 % (43.0-81.0); PLATELET COUNT (AUTO) 330 /CMM (150-450); RED BLOOD CELL COUNT(AUTO) 4.26 MIL/uL (4.0-5.2); WHITE BLOOD COUNT (AUTO) 6.5 K/uL (4.3-11.0)
[2019-12-15 06:54] LABS: CALCIUM, SERUM 9.9 mg/dL (8.5-10.1); POTASSIUM 3.7 mmol/L (3.5-5.1)
--- NOTE | 2019-12-15 07:31 | NUR ---
RN CLOSING NOTES PATIENT IS RESTING IN BED VS WNL. THERE ARE NOS/S OF PAIN. The patient is A/O x4. The patient is able to ambulate with assistance. The has an IV 22g on LFA, Flushing well. All mechanisms of safety are in place at this time. Bed locked, in the lowest position, and with alarm on. will endorse the next.
--- NOTE | 2019-12-15 07:35 | NUR ---
MS RN NOTES PATIENT IS A/OX3-4 SLOV[place] SPEAKER. ABLE TO AMBULATE BY HERSELF. NO SIGNS OF SOB OR DISTRESS NOTED AT THIS TIME. WILL CONTINUE TO MONITOR THE PATIENT.
[2019-12-15 08:00] VITALS: BP 113/48
[2019-12-15] MEDS: PANTOPRAZOLE 40 MG TABLET.DR PO SCH (08:25)
[2019-12-15] MEDS: FUROSEMIDE 40 MG/4 ML VIAL IV SCH (09:42)
[2019-12-15] MEDS: AMLODIPINE BESYLATE 5 MG TABLET PO SCH (09:43)
[2019-12-15] MEDS: POTASSIUM CHLORIDE 20 MEQ TAB.PRT.SR PO SCH (09:43)
[2019-12-15 09:44] VITALS: BP 113/48
[2019-12-15] MEDS: LOSARTAN POTASSIUM 50 MG TABLET PO SCH (09:44)
--- NOTE | 2019-12-15 11:00 | NUR ---
MS RN NOTES PATIENT SITTING IN BED A/OX3-4. SON , GAVINO, IS WAITING AT THE [facility] TO CLUB STEWARD HER MOM. ALL BELONGINGS RETURNED TO PATIENT AND BELONGINGS SIGNED BY PT. SKIN IS INTACT AND NO PICTURES WERE TAKEN. REMOVED IV AND WRIST BAND AND PATIENT WAS TRANSFERRED TO [facility] BY RN FOR TRANSPORTATION.
== END 2019-12-15 11:31 | disposition home health service (06) | DRG 291 ==
LOC: ER 19:53 → TELE 21:15 → TELE1 23:04 → MEDSG1 12-13 20:40
PROVIDERS: ADMIT Internal Medicine; ATTEND Family Medicine
DX: I11.0 Hypertensive heart disease with heart failure (principal); E43 Unspecified severe protein-calorie malnutrition; D68.69 Other thrombophilia; I25.10 Atherosclerotic heart disease of native coronary artery without angina pectoris; I48.91 Unspecified atrial fibrillation; Z79.01 Long term (current) use of anticoagulants; I50.33 Acute on chronic diastolic (congestive) heart failure; E87.6 Hypokalemia; Z95.2 Presence of prosthetic heart valve; E88.09 Other disorders of plasma-protein metabolism, not elsewhere classified; M62.50 Muscle wasting and atrophy, not elsewhere classified, unspecified site; Z68.26 Body mass index [BMI] 26.0-26.9, adult
CPT/HCPCS: 36415; 71045-TC; 80048-TC; 80053-TC; 80076-TC; 82962-TC; 83735-TC; 83880; 84100-TC; 84484-TC; 85025-TC; 85730-TC; G0378; J1940; J7030; U0003-CS

== ENCOUNTER 2021-11-09 14:58 | Emergency (ER) | payer MEDICARE, OTHER ==
[~2021-11-09] VITALS: Ht 152.4 cm; Wt 63.5 kg
[~2021-11-09 14:58] MED LIST changes: +AMLO-212 PO; -AMLO5TAB9 PO
[2021-11-09] MEDS ORDERED: AMIO100T4 PO (15:07)
[2021-11-09] MEDS ORDERED: SPIR25TA6 PO (15:07)
[2021-11-09] MEDS ORDERED: LEVO25TA76 PO (15:07)
[2021-11-09] MEDS ORDERED: SILD20TA2 PO (15:07)
[2021-11-09] MEDS ORDERED: DILT240C88 PO (15:07)
--- NOTE | 2021-11-09 15:08 | NUR ---
AT BEDSIDE FOR EVAL.
--- NOTE | 2021-11-09 15:08 | NUR ---
To ER bed 9, from home, came in to the er c/o upper back, and left leg pain s/p multiple fall 5/10 pain, aaox3, breathing even and non labored, connected to monitor, awaiting md hinkle
[2021-11-09] MEDS ORDERED: ONDANSETRON 4 MG TAB.RAPDIS ONE (15:18)
[2021-11-09] MEDS ORDERED: MORPHINE SULFATE INJ 2 MG/ML DISP.SYRIN ONE (15:18)
[2021-11-09] MEDS ORDERED: IV NS 0.9% 1,000 ML BAG IV ONE (15:30)
[2021-11-09] MEDS ORDERED: ONDANSETRON 4 MG TAB.RAPDIS PO ONE (15:30)
[2021-11-09] MEDS ORDERED: MORPHINE SULFATE INJ 2 MG/ML DISP.SYRIN IM ONE (15:30)
[2021-11-09 15:41] LABS: BASOPHILS # (AUTO) 0.1 K/uL (0.0-0.2); BASOPHILS % (AUTO) 0.8 % (0.0-2.0); EOSINOPHILS % (AUTO) 1.6 % (0.0-6.0); HEMATOCRIT 41 % (33-45); HEMOGLOBIN 13.3 g/dL (11.5-14.8); LYMPHOCYTES # (AUTO) 1.4 K/uL (0.8-4.8); LYMPHOCYTES % (AUTO) 20.7 % (20.0-44.0); MEAN CORPUSCULAR HGB CONC 33 g/dl (31.0-36.0); MEAN CORPUSCULAR VOLUME 86 fL (82-100); MONOCYTES # (AUTO) 0.7 K/uL (0.1-1.30); MONOCYTES % (AUTO) 10.3 % (2.0-12.0); NEUTROPHILS # (AUTO) 4.6 K/uL (1.8-8.9); NEUTROPHILS % (AUTO) 66.6 % (43.0-81.0); PLATELET COUNT (AUTO) 246 K/uL (150-450); WHITE BLOOD COUNT (AUTO) 6.9 K/uL (4.3-11.0)
--- NOTE | 2021-11-09 15:50 | NUR ---
URINE COLLECTED AND SENT TO LAB
[2021-11-09 16:01] LABS: ALANINE AMINOTRANSFERASE 15 U/L (12-78); ALBUMIN 3.7 g/dL (3.4-5.0); ALKALINE PHOSPHATASE 127 U/L (46-116); ASPARTATE AMINOTRANSFERASE 15 U/L (15-37); BILIRUBIN,DIRECT 0.1 mg/dL (0.0-0.2); BILIRUBIN,TOTAL 0.4 mg/dL (0.2-1.0); CALCIUM, SERUM 9.8 mg/dL (8.5-10.1); CARBON DIOXIDE 31 mmol/L (21-32); CHLORIDE 100 mmol/L (98-107); CREATININE 1.7 mg/dL (0.6-1.3); GLUCOSE 121 mg/dL (74-106); POTASSIUM 4.7 mmol/L (3.5-5.1); SODIUM SERUM 136 mmol/L (136-145); TOTAL PROTEIN, SERUM 7.5 g/dL (6.4-8.2); UREA NITROGEN, BLOOD 30 mg/dL (7-18)
[2021-11-09 16:19] LABS: BILIRUBIN,URINE NEGATIVE (NEGATIVE); COLOR,URINE YELLOW (YELLOW); LEUKOCYTE ESTERASE ,URINE SMALL (NEGATIVE); NITRITE, URINE NEGATIVE (NEGATIVE); PH,URINE 7.5 (5.0-8.0); PROTEIN,URINE NEGATIVE (NEGATIVE); UGLUCOSE NEGATIVE (NEGATIVE); UROBILINOGEN,URINE 0.2 EU/dL (0.2)
[2021-11-09 16:35] LABS: BACTERIA,URINE Few /HPF (None Seen); MUCUS,URINE Few /LPF (None Seen); RBC,URINE 0-2 /HPF (0-2); SQUAMOUS EPITHELIAL CELL,UR Few /HPF (None Seen)
[2021-11-09] MEDS ORDERED: CIPR-262 PO (17:03)
[2021-11-09] MEDS ORDERED: IBUP-1953 PO (17:03)
--- NOTE | 2021-11-09 17:09 | NUR ---
IV removed. Catheter intact and site benign. Pressure and 4x4 applied to site. No bleeding noted.Patient discharged to home in stable condition. Written and verbal after care instructions given. Patient verbalizes understanding of instruction.
[2021-11-09 17:10] VITALS: BP 111/72
== END 2021-11-09 17:10 | disposition home or self-care (01) ==
LOC: ER 15:15
DX: S20.222A Contusion of left back wall of thorax, initial encounter (principal); N39.0 Urinary tract infection, site not specified; E86.0 Dehydration; I11.0 Hypertensive heart disease with heart failure; I50.9 Heart failure, unspecified; Z88.0 Allergy status to penicillin; Z79.899 Other long term (current) drug therapy; W18.30XA Fall on same level, unspecified, initial encounter; Y93.89 Activity, other specified; Y92.89 Other specified places as the place of occurrence of the external cause; Y99.8 Other external cause status
CPT/HCPCS: 36415; 70450; 71045; 72125; 72128; 72131; 80048; 80076; 81001; 82962; 85025; 85730; 87086; 93005; 96360; 96372; 99285; J2270; J7030; Q0162